=== PATIENT | female | born 1980 | race African-American/Black ===

== ENCOUNTER 2023-08-26 08:21 | Outpatient (AMB) | payer OTHER, SELFPAY ==
[2023-08-26 08:32] VITALS: BMI 61.0
--- NOTE | 2023-08-26 08:32 | A.OFFVIS_ITS ---
Intake VS Expanded 08/26/23 08:32 09/02/23 11:19 Height 5 ft 3 in 5 ft 3 in Weight 344 lb 5.793 oz 344 lb BMI 61.0 60.9 Intake Visit Reasons: Obesity/CONFIRMED HPI Nutrition Presentation Details Pt presents for MNT for morbid obesity. The Pt was referred by RENEE Shaffer from [facility] Typical meal intake Energy drink 1, water , coffee large ice cream with extra cream and 8 sugars work: chicken sandwich , 20 oz sprite pork chop, rice/vegetables, sprite or ice tea snacks not healthy snacks fish : couple of time in the month fruit: o-1/d ve servings/daily fried foods : 2x/wk pastries and the like : daily Fluids: empty lakisha > 60 oz /d physical activity: daily life smoking/etoh:denies LTA-Gvjexxo-Tv.Jeor Equation Height 5 ft 3 in Weight 344 lb Resting Metabolic Rate 2176.52 Calculated Activity Level Sedentary Calories Needed to Maintain Weight 2611.82 Diagnosis Nutrition problem #1 excessive energy intake As related to (etiology) #1 diagnosis As evidenced by (sign/symptom) #1 high BMI (60.9 (08/2023)) Monitoring/Goals Nutrition problem monitoring total PRO intake, total CHO intake, weight and oral fluids Nutrition goal/outcome list 3 CHO foods and wt loss 5lbs in 2 months Outcome progress verbalized understanding Learning/Education Readiness to learn good Most Recent Diabetes Results: No Data to Display Assessment & Plan Assessment & Plan (1) Morbid obesity due to excess calories: Code(s): E66.01 - Morbid (severe) obesity due to excess calories Plan: Wt: 156Kg ( ) Est kcal needs as per MSJ: 2600 (40% carb, 30% protein/fat) Est fluid needs as per 30 ml/d: 4700 Est prot per day as per 1 g/kg bw: 156 Recommend fiber intake : 8-10 g per day and gradually increase to 25-28 g per day for women and 35-38 g for men or as tolerated Recommend sodium intake per day : less than 1500 mg less than 2000 mg Educated patient on: ( R = reviewed V = verbalizes understanding N/R = needs review N/A = not applicable * Food sources of carbohydrate, adequate serving sizes and its role in various health conditions: R * Differences between complex carbohydrates a simple carbohydrates, role of fiber in diet: R * Lean protein sources of foods: R * Differences between types of fats and role in diet (mono on saturated fat fatty acids, saturated fatty acids, trans fats): N/R * Food sources of sodium in salt and healthy modifications for heart health in kidney health: N/R * Vitamins and minerals: R * Healthy plate method concept: R * Physical activity: Benefits a precaution: N/R * Dietary prevention of Hyperglycemia: R Patient Instructions: Keep a food and beverage log and bring to next follow up Include at least 2 fruits a day replacing a dessert type of food Work on reducing beverages with sugar, replace with water (fruit infused) Coding Level of Care Code Nutr Indiv Intake (34347) Diagnoses Morbid obesity due to excess calories E66.01 Time Spent (min) 30
[2023-09-02 11:19] VITALS: BMI 60.9
== END 2023-08-26 09:24 | disposition home or self-care (01) ==
PROVIDERS: PCP Physician Assistant; Visit Provider Dietitian, Registered
DX: E66.01 Morbid (severe) obesity due to excess calories (principal)

== ENCOUNTER → 2023-08-26 08:21 | Outpatient (BNVA) | payer OTHER, SELFPAY | PROVIDERS: PCP Physician Assistant; Visit Provider Dietitian, Registered | DX: E66.01 Morbid (severe) obesity due to excess calories (principal); Z68.44 Body mass index [BMI] 60.0-69.9, adult; Z71.3 Dietary counseling and surveillance | CPT/HCPCS: 97802 ==

== ENCOUNTER 2023-11-18 09:22 | Outpatient (AMB) | payer OTHER, SELFPAY ==
[2023-11-18 09:45] VITALS: BMI 58.6
--- NOTE | 2023-11-18 09:45 | A.OFFVIS_ITS ---
Intake VS Expanded 11/18/23 09:45 Height 5 ft 3 in Weight 330 lb 11.094 oz BMI 58.6 Intake Visit Reasons: MORBID OBESITY/PRE DM/ CONFIRMED HPI Nutrition Presentation Details Pt presents for MNT f/u for morbid obesity. Pt reports working on diet modifications, reducing on empty calorie foods fluid intake: inc water and reducing sugary beverages Most Recent Diabetes Results: No Data to Display Assessment & Plan Assessment & Plan (1) Morbid obesity due to excess calories: Code(s): E66.01 - Morbid (severe) obesity due to excess calories Plan: Wt: 156Kg ( 08/2023 ), 150 kg (10/2023) Est kcal needs as per MSJ: 2600 (40% carb, 30% protein/fat) Est fluid needs as per 30 ml/d: 4500 Est prot per day as per 1 g/kg bw: 150 Recommend fiber intake : 8-10 g per day and gradually increase to 25-28 g per day for women and 35-38 g for men or as tolerated Recommend sodium intake per day : less than 1500 mg less than 2000 mg Educated patient on: ( R = reviewed V = verbalizes understanding N/R = needs review N/A = not applicable * Food sources of carbohydrate, adequate serving sizes and its role in various health conditions: R * Differences between complex carbohydrates a simple carbohydrates, role of fiber in diet: R * Lean protein sources of foods: R * Differences between types of fats and role in diet (mono on saturated fat fatty acids, saturated fatty acids, trans fats): R * Food sources of sodium in salt and healthy modifications for heart health in kidney health: N/R * Vitamins and minerals: R * Healthy plate method concept: R * Physical activity: Benefits a precaution: N/R * Dietary prevention of Hyperglycemia: R Patient Instructions: Continue working on reducing on empty calorie foods Have 2-3 fruits per day in place of pastries Follow healthy plate method Coding Level of Care Code Nutr Indiv Subseq (43577) Diagnoses Morbid obesity due to excess calories E66.01 Time Spent (min) 30
== END 2023-11-18 10:12 | disposition home or self-care (01) ==
PROVIDERS: PCP Physician Assistant; Visit Provider Dietitian, Registered
DX: E66.01 Morbid (severe) obesity due to excess calories (principal)

== ENCOUNTER → 2023-11-18 09:22 | Outpatient (BNVA) | payer OTHER, SELFPAY | PROVIDERS: PCP Physician Assistant; Visit Provider Dietitian, Registered | DX: E66.01 Morbid (severe) obesity due to excess calories (principal); Z68.43 Body mass index [BMI] 50.0-59.9, adult; Z71.3 Dietary counseling and surveillance | CPT/HCPCS: 97803 ==

== ENCOUNTER 2024-02-23 10:17 | Outpatient (AMB) | payer OTHER, SELFPAY ==
[2024-02-23 10:29] VITALS: BMI 59.4
--- NOTE | 2024-02-23 10:29 | A.OFFVIS_ITS ---
VS Expanded 02/23/24 10:29 Height 5 ft 3 in Weight 335 lb 1.642 oz BMI 59.4 Intake Visit Reasons: OBESITY/LVM Nutrition Presentation Details: Pt presents for MNT follow up for obesity Pt reports challenges with work schedule and skipping meals Working on smoking cessation and notices increase in appetite in the evening BS Monitoring Most Recent Diabetes Results: No Data to Display Assessment & Plan Assessment & Plan (1) Morbid obesity due to excess calories: Code(s): E66.01 - Morbid (severe) obesity due to excess calories Category: Medical Plan: Wt: 156Kg ( 08/2023 ), 150 kg (10/2023), 152 kg(02/2024) Est kcal needs as per MSJ: 2600 (40% carb, 30% protein/fat) Est fluid needs as per 30 ml/d: 4500 Est prot per day as per 1 g/kg bw: 150 Recommend fiber intake : 8-10 g per day and gradually increase to 25-28 g per day for women and 35-38 g for men or as tolerated Recommend sodium intake per day : less than 1500 mg less than 2000 mg Educated patient on: ( R = reviewed V = verbalizes understanding N/R = needs review N/A = not applicable * Food sources of carbohydrate, adequate serving sizes and its role in various health conditions: R * Differences between complex carbohydrates a simple carbohydrates, role of fiber in diet: R * Lean protein sources of foods: R * Differences between types of fats and role in diet (mono on saturated fat fatty acids, saturated fatty acids, trans fats): R * Food sources of sodium in salt and healthy modifications for heart health in kidney health: R * Vitamins and minerals: R * Healthy plate method concept: R * Physical activity: Benefits a precaution: N/R * Dietary prevention of Hyperglycemia: R Patient Instructions: Choose fiber rich foods (carrots, celery, peppers) to snack on when increased appetite Have a meal replacement in place of skipping meals Continue working on having 2 fruit a day in place of pastries Coding Level of Care Code Nutr Indiv Subseq (84732) Diagnoses Morbid obesity due to excess calories E66.01 Time Spent (min) 20
== END 2024-02-23 10:47 | disposition home or self-care (01) ==
PROVIDERS: PCP Physician Assistant; Visit Provider Dietitian, Registered
DX: E66.01 Morbid (severe) obesity due to excess calories (principal)

== ENCOUNTER → 2024-02-23 10:17 | Outpatient (BNVA) | payer OTHER, SELFPAY | PROVIDERS: PCP Physician Assistant; Visit Provider Dietitian, Registered | DX: E66.01 Morbid (severe) obesity due to excess calories (principal); Z68.43 Body mass index [BMI] 50.0-59.9, adult; Z71.3 Dietary counseling and surveillance | CPT/HCPCS: 97803 ==